=== PATIENT | male | born 1995 | race African-American/Black ===

== ENCOUNTER 2018-09-25 19:09 | Emergency (ER) | payer BC, MEDICAID ==
[~2018-09-25] VITALS: Ht 175.3 cm; Wt 79.0 kg
[2018-09-25] MEDS ORDERED: OXYCODONE HCL/ACETAMINOPHEN 5/325MG TABLET PO ONE (23:15)
[2018-09-25] MEDS ORDERED: LIDOCAINE HCL/PF 1% 10 MG/ML 5ML VIAL IJ ONE (23:45)
[2018-09-26 01:00] VITALS: BP 122/75
== END 2018-09-26 01:00 | disposition home or self-care (01) ==
LOC: ER 19:09
DX: K65.1 Peritoneal abscess (principal); F17.200 Nicotine dependence, unspecified, uncomplicated; F12.10 Cannabis abuse, uncomplicated
CPT/HCPCS: 10060; 99283; J3490; Z7610